=== PATIENT | female | born 1935 | race Caucasian/White ===

== ENCOUNTER 2017-05-07 12:47 | Inpatient (IN) | payer MEDICARE, MEDICAID ==
[2017-05-07] MEDS ORDERED: Sodium Chloride 0.9% 1,000 ML IV STA (13:37)
[2017-05-07 14:06] LABS: BASO % 0.2 % (0.0-2.0); EOS % 0.2 % (0.0-4.0); HEMATOCRIT 39.6 % (34.0-47.0); LYMPH # 1.4 K/uL (1.0-4.3); LYMPH % 17.9 % (20.0-40.0); MEAN CELL VOLUME 90.1 fL (81.0-99.0); MEAN CORPUSCULAR HEMOGLOBIN 30.5 pg (27.0-31.0); MEAN CORPUSCULAR HGB CONC 33.8 g/dL (33.0-37.0); MEAN PLATELET VOLUME 7.7 fL (7.2-11.7); MONO # 0.6 K/uL (0.0-0.8); MONO % 7.2 % (0.0-10.0); RED CELL DISTRIBUTION WIDTH 13.7 % (11.5-14.5); WHITE BLOOD COUNT 7.9 K/uL (4.8-10.8)
[2017-05-07] MEDS ORDERED: Sodium Chloride 0.9% 1,000 ML ONE (14:07)
--- NOTE | 2017-05-07 14:16 | C.PDOC ---
History Of Present Illness 82-year-old female, PMHx includes Hypertension, Hypertension, Hypercholesterolemia, colon perforation seven years ago, s/p resection w/ colostomy, s/p colostomy reversal, presents to the emergency department with complaints of diarrhea x9 days. Patient was seen by PMD, who prescribed Lomotil , and she has had intermittent non-bloody diarrhea since. States she is taking Pepto-Bismol, and reports decreased PO intake. Diarrhea became more significant last night; This morning, patient called PMD, who referred her to the ED for evaluation. Patient denies fevers, abdominal pain, nausea/vomiting, recent travel, ABX use. PMD Maribell Johnson MD. Time Seen by Provider: 05/07/17 13:08 Chief Complaint (Nursing): GI Problem History Per: Patient History/Exam Limitations: no limitations Onset/Duration Of Symptoms: Days Current Symptoms Are (Timing): Still Present Severity: Moderate Past Medical History Reviewed: Historical Data, Nursing Documentation, Vital Signs Vital Signs: Last Vital Signs Temp 99.0 F 05/07/17 13:07 Pulse 76 05/07/17 13:07 Resp 20 05/07/17 13:07 BP 149/72 05/07/17 13:07 Pulse Ox 95 05/07/17 14:39 - Medical History PMH: Depression, HTN, Hypercholesterolemia Family History: States: No Known Family Hx - Social History Hx Alcohol Use: No Hx Substance Use: No - Immunization History Hx Tetanus Toxoid Vaccination: No Hx Influenza Vaccination: No Hx Pneumococcal Vaccination: No Review Of Systems Except As Marked, All Systems Reviewed And Found Negative. Constitutional: Negative for: Fever Cardiovascular: Negative for: Chest Pain Respiratory: Negative for: Shortness of Breath Gastrointestinal: Positive for: Diarrhea. Negative for: Nausea, Vomiting Skin: Negative for: Rash Physical Exam - Physical Exam Additional Physical Exam Comments: Constitutional: Appears weak. Head: Normocephalic. Atraumatic. Eyes: PERRL. ENT: Dry mucous membranes. Neck: Supple. Cardiovascular: Regular rate. Radial pulses 2+ bilaterally. Chest: No tenderness. Respiratory: Clear to auscultation bilaterally. GI: Soft. Nontender. Nondistended. Hyperactive bowel sounds. No R/G. Old well- healed surgical scars Back: No CVA tenderness. Musculoskeletal: No tenderness or swelling of extremities. Skin: No rashes. Neurologic: Alert, no focal deficit. ED Course And Treatment - Laboratory Results Result Diagrams: 05/07/17 13:59 05/07/17 13:59 O2 Sat by Pulse Oximetry: 95 Medical Decision Making Medical Decision Making: Patient with significant diarrhea, not responsive to outpatient therapy with clinically appearing dehydration and worsening GFR. UTI. Dr. Johnson recommends admission, r/o C diff, abdominal CT. Started on antibiotics. Disposition - Disposition Disposition: HOSPITALIZED Disposition Time: 15:02 Condition: GUARDED - Clinical Impression Clinical Impression: Diarrhea, UTI (urinary tract infection), Dehydration - Scribe Statement The provider has reviewed the documentation as recorded by the Scribe Maged Pereira All medical record entries made by the Scribe were at my direction and personally dictated by me. I have reviewed the chart and agree that the record accurately reflects my personal performance of the history, physical exam, medical decision making, and the department course for this patient. I have also personally directed, reviewed, and agree with the discharge instructions and disposition. All medical record entries made by the Scribe were at my direction and personally dictated by me. I have reviewed the chart and agree that the record accurately reflects my personal performance of the history, physical exam, medical decision making, and the department course for this patient. I have also personally directed, reviewed, and agree with the discharge instructions and disposition.
[2017-05-07 14:22] LABS: RBC URINE 2 /hpf (0-3); URINE BACTERIA OCC (<OCC); URINE BILIRUBIN NEGATIVE (NEGATIVE); URINE BLOOD NEGATIVE (NEGATIVE); URINE COLOR Yellow (YELLOW); URINE GLUCOSE (UA) NORMAL (Normal); URINE KETONE NEGATIVE (NEGATIVE); URINE LEUKOCYTE ESTERASE 3+ Leu/uL (Negative); URINE PROTEIN NEGATIVE (NEGATIVE); URINE UROBILINOGEN NORMAL mg/dL (0.2-1.0); WBC URINE 35 /hpf (0-5)
[2017-05-07 14:27] LABS: POTASSIUM 3.7 mmol/L (3.6-5.2)
[2017-05-07 14:29] LABS: ALB/GLOB RATIO 1.3 (1.0-2.1); BILIRUBIN,TOTAL 0.6 mg/dL (0.2-1.3); TOTAL PROTEIN 6.3 g/dL (6.3-8.3)
[2017-05-07 14:30] LABS: CALCIUM 9.5 mg/dl (8.6-10.4)
[2017-05-07] MEDS ORDERED: Ciprofloxacin 400mg/200ml D5W 400 MG/200 ML BAG IVPB STA (14:59)
[2017-05-07] MEDS ORDERED: Ciprofloxacin 400mg/200ml D5W 400 MG/200 ML BAG IVPB ONE (15:07)
--- NOTE | 2017-05-07 16:09 | CT ---
PROCEDURE: CT Abdomen and Pelvis without Oral or IV contrast. HISTORY: diarrhea COMPARISON: None available. TECHNIQUE: Contiguous axial images of the abdomen and pelvis. No oral or IV contrast administered. Coronal and Sagittal reformats generated and reviewed. Radiation dose: Total exam DLP = 314.36 mGy-cm. This CT exam was performed using one or more of the following dose reduction techniques: Automated exposure control, adjustment of the mA and/or kV according to patient size, and/or use of iterative reconstruction technique. FINDINGS: There is limited evaluation of the solid organs without the administration of IV contrast. LOWER THORAX: Bibasilar atelectasis. No visible pleural effusion or pneumothorax. Irregular nodular density at the right lung base measuring approximately 1.1 x 1.5 cm (series 5, image 9). 5 mm left lower lobe pulmonary nodule (series 3, image 1). Dense coronary artery calcifications. Small hiatal hernia/distal esophageal wall thickening. LIVER: Unremarkable unenhanced appearance. GALLBLADDER AND BILE DUCTS: Unremarkable unenhanced appearance. PANCREAS: 13 mm probable splenule noted near the pancreatic tail. Pancreatic lesion is not excluded. The pancreas and spleen appear otherwise grossly unremarkable. SPLEEN: See above. ADRENALS: Unremarkable unenhanced appearance. KIDNEYS AND URETERS: Probable right extrarenal pelvis and parapelvic cysts. Mild right-sided hydronephrosis is not excluded. No left-sided hydronephrosis. No obstructing calculi evident bilaterally. The right kidney is malrotated. 16 mm low-density left renal lesion measures approximately 15 HU, possibly cyst. BLADDER: The urinary bladder appears unremarkable. REPRODUCTIVE: Unremarkable. APPENDIX: The appendix appears within normal limits of caliber. No secondary signs of acute appendicitis. BOWEL: The stomach is nondistended. Lack of oral contrast limits evaluation for bowel pathology. The bowel loops appear within normal limits of caliber without evidence of intestinal obstruction. Marked wall thickening of the duodenum at the level of large proximal air-filled duodenal diverticulum of unclear significance ; correlate clinically for infectious or inflammatory etiologies. Diverticulosis without CT evidence of acute diverticulitis. Anastomotic bowel suture material at the rectosigmoid colon. PERITONEUM: No significant free fluid. No definite free air. LYMPH NODES: No bulky lymphadenopathy identified. VASCULATURE: Dense atherosclerotic calcifications of the aorta and branches. No aortic aneurysm. BONES: Osseous demineralization. Degenerative changes. Vacuum disc phenomenon L5-S1. OTHER FINDINGS: None. IMPRESSION: Irregular nodular density at the right lung base measuring approximately 1.1 x 1.5 cm. 5 mm left lower lobe pulmonary nodule. CT of the chest is recommended for further evaluation. Malignant neoplasm cannot be excluded. Marked wall thickening of the duodenum at the level of large proximal air-filled duodenal diverticulum of unclear significance ; correlate clinically for infectious or inflammatory etiologies. Evaluation is limited due to lack of oral and IV contrast. Diverticulosis without CT evidence of acute diverticulitis. Probable right extrarenal pelvis and parapelvic cysts. Mild right-sided hydronephrosis is not excluded. No left-sided hydronephrosis. No obstructing calculi evident bilaterally. The right kidney is malrotated. 16 mm low-density left renal lesion measures approximately 15 HU, possibly cyst. Renal ultrasound may be considered if indicated. Additional incidental findings as above.
[2017-05-08] MEDS ORDERED: Home Med 1 UNIT (Ibandronate Sodium [Boniva] 150 MG) PO SCH (10:00)
[2017-05-08] MEDS ORDERED: Home Med 1 UNIT (Esomeprazole Magnesium [Nexium] 40 MG) PO SCH (10:00)
[2017-05-08] MEDS ORDERED: TIZANIDINE HCL 4 MG PO SCH (10:00)
[2017-05-08] MEDS ORDERED: Omega-3-Acid Ethyl Esters 1 GM Cap PO SCH (10:00)
[2017-05-08] MEDS ORDERED: Calcium-Vit D 500 mg-200 Units Tab UD PO SCH (10:00)
[2017-05-08] MEDS ORDERED: Dextrose 5%/0.45% NS 1,000 ML IV SCH (10:45)
[2017-05-08] MEDS: Multivitamin With Minerals Tab PO SCH (10:59)
[2017-05-08] MEDS: Pantoprazole 40 mg EC Tab PO SCH (10:59)
[2017-05-08] MEDS: Omega-3-Acid Ethyl Esters 1 GM Cap PO SCH (10:59)
[2017-05-08] MEDS: Enoxaparin 40 mg Syringe SC SCH (10:59)
[2017-05-08] MEDS: Calcium-Vit D 500 mg-200 Units Tab UD PO SCH (11:37)
--- NOTE | 2017-05-08 12:03 | CP.PCM.HP ---
History of Present Illness - History of Present Illness History of Present Illness: pt has watery diarhea not responding to treatment for last 10 days loss of apetitie loss of wt unable to eate Present on Admission - Present on Admission Any Indicators Present on Admission: No Review of Systems - Review of Systems Systems not reviewed;Unavailable: Acuity of Condition - Constitutional Constitutional: Anorexia, Weight Loss, Weakness - EENT Eyes: As Per HPI Ears: As Per HPI Nose/Mouth/Throat: Dry Mouth - Breasts Breasts: As Per HPI - Cardiovascular Cardiovascular: Dyspnea on Exertion - Respiratory Respiratory: Dyspnea on Exertion - Gastrointestinal Gastrointestinal: Bloating, Change in Bowel Habits, Diarrhea, Dyspepsia - Genitourinary Genitourinary: Dysuria - Reproductive: Female Reproductive:Female: Post Menopausal - Menstruation Menstruation: Post Menopausal - Musculoskeletal Musculoskeletal: Back Pain, Loss of Height, Stiffness - Integumentary Integumentary: Dry Skin - Neurological Neurological: Dizziness, Memory Loss, Weakness - Psychiatric Psychiatric: Change in Appetite - Endocrine Endocrine: As Per HPI - Hematologic/Lymphatic Hematologic: As Per HPI Past Patient History - Infectious Disease Hx of Infectious Diseases: None - Past Medical History & Family History Past Medical History?: Yes - Past Social History Smoking Status: Never Smoked Home Situation {Lives}: With Family - CARDIAC Hx Hypercholesterolemia: Yes Hx Hypertension: Yes - MUSCULOSKELETAL/RHEUMATOLOGICAL Hx Falls: No Other/Comment: muscle spasm in legs - GASTROINTESTINAL Hx Gastroesophageal Reflux: Yes - PSYCHIATRIC Hx Depression: Yes Hx Substance Use: No - SURGICAL HISTORY Other/Comment: colon surgery - ANESTHESIA Hx Anesthesia: Yes Hx Anesthesia Reactions: No Hx Malignant Hyperthermia: No Meds Allergies/Adverse Reactions: Allergies Allergy/AdvReac Type Severity Reaction Status Date / Time No Known Allergies Allergy Verified 05/07/17 13:09 Physical Exam - Constitutional Appears: In Acute Distress - Head Exam Head Exam: ATRAUMATIC - Eye Exam Eye Exam: Normal appearance - ENT Exam ENT Exam: Normal Exam - Neck Exam Neck exam: Positive for: Full Rom - Respiratory Exam Respiratory Exam: Clear to Auscultation Bilateral - Cardiovascular Exam Cardiovascular Exam: REGULAR RHYTHM - GI/Abdominal Exam GI & Abdominal Exam: Guarding, Normal Bowel Sounds, Tenderness - Rectal Exam Rectal Exam: NORMAL INSPECTION - Extremities Exam Extremities exam: Positive for: normal inspection, tenderness - Back Exam Back exam: CVA tenderness (L) - Neurological Exam Neurological exam: Oriented x3 - Psychiatric Exam Psychiatric exam: Normal Mood - Skin Skin Exam: Dry Results - Vital Signs Recent Vital Signs: Last Vital Signs Temp 97.3 F L 05/07/17 23:35 Pulse 60 05/07/17 23:35 Resp 20 05/07/17 23:35 BP 159/78 H 05/07/17 23:35 Pulse Ox 95 05/07/17 23:35 - Labs Result Diagrams: 05/07/17 13:59 05/07/17 13:59 Assessment & Plan - Assessment and Plan (Free Text) Assessment: persistant diarhea wt loss loss of apetite uti diverticulosis Plan: hydration gi consult fullliqid diet medication - Date & Time Date: 05/08/17 Time: 12:13
[2017-05-08] MEDS: Vancomycin 125 MG/5 ML SOLN (ORAL/RECTAL) PO SCH ×3 (14:07→21:45)
[2017-05-08] MEDS: Ciprofloxacin 400mg/200ml D5W 400 MG/200 ML BAG IVPB SCH (14:07)
--- NOTE | 2017-05-08 14:19 | US ---
HISTORY: partial thyroid resection TECHNIQUE: Grayscale imaging was performed. COMPARISON: None FINDINGS: RIGHT LOBE: Measures 3.2 x 1.2 x 1.2 cm. Small in size with normal echotexture and flow. Patient reports history of partial right thyroidectomy. Nodules: None LEFT LOBE: Measures 5.2 x 2.1 x 1.8 cm. Normal echotexture and increased flow. Nodules: There is a 17 x 5 x 5 mm nodule in the upper pole, 11 x 9 x 10 mm nodule in the lower pole and two discrete 20 mm and 11 mm nodules in the left interpolar region. ISTHMUS: Measures 0.14 cm. Normal echotexture and flow. Nodules: None OTHER FINDINGS: None . IMPRESSION: 1. Small right thyroid lobe without discrete nodule. Patient reports history of partial right thyroidectomy. 2. Multinodular hypervascular left thyroid lobe with a dominant 20 mm nodule in the left interpolar region.
[2017-05-08 14:46] LABS: T4 10.6 ug/dL (5.5-11.0)
[2017-05-08 15:00] LABS: THYROID STIMULATING HORMONE 1.67 mIU/L (0.46-4.68)
[2017-05-08 15:16] LABS: CARCINOEMBRYONIC ANTIGEN 1.1 ng/mL (0-3.0)
[2017-05-08 15:19] LABS: CA 19-9 28.6 U/mL (0-37)
[2017-05-08] MEDS ORDERED: Atropine-Diphenoxylate 0.025-2.5 mg Tab PO STA (17:23)
[2017-05-09 00:34] VITALS: TEMP 97.3
[2017-05-09] MEDS: Ciprofloxacin 400mg/200ml D5W 400 MG/200 ML BAG IVPB SCH (01:38)
[2017-05-09 08:31] VITALS: BP 108/67; PULSE 53; RESP 18; O2SAT 94
[2017-05-09] MEDS: Multivitamin With Minerals Tab PO SCH (09:17)
[2017-05-09] MEDS: Pantoprazole 40 mg EC Tab PO SCH (09:17)
[2017-05-09] MEDS: Enoxaparin 40 mg Syringe SC SCH (09:17)
[2017-05-09] MEDS: Calcium-Vit D 500 mg-200 Units Tab UD PO SCH (09:17)
[2017-05-09] MEDS: Omega-3-Acid Ethyl Esters 1 GM Cap PO SCH (09:17)
[2017-05-09] MEDS ORDERED: LIPASE/PROTEASE/AMYLASE 4,200 U ECC PO SCH ×2 (10:00→12:00)
[2017-05-09] MEDS ORDERED: Gentamicin 250 MG in Sodium Chloride 0.9% 250 ML IVPB STA ×2 (11:17→11:18)
--- NOTE | 2017-05-09 11:29 | PN ---
DATE: 05/09/2017 LOCATION: 552, bed B. This is an 82-year-old female seen and examined on GI consultation with admitting Dr. Johnson at beds ez on 05/08/2017, reexamined again today with the main complaint of diarrhea and crampy abdominal pa in with subsequent frequency of the bowel movement. The entire chart is reviewed, including but not limited to the most recent lab and radiology study results, current and previous medication list , current and the previous medical events. Case discussed with the staff at length, and yesterday sh owed normal cancer markers as well as normal thyroid function tests, but low total T3 of 1.24. Ultrasound of the thyroid report is seen. The patient may need endocrinology consultation. CAT scan of the abdomen and the pelvis also was seen. PHYSICAL EXAMINATION: GENERAL: An 82-year-old female seen in rounds, appears to be awake, alert, oriented. VITAL SIGNS: Afebrile with pulse of 56, respiratory rate 20-22 with blood pressure of 118/64. HEENT: Showed pale, dry oral mucoid membrane. Nonicteric sclerae. LUNGS: Few scattered crepitation, decreased air entry at bases. HEART: Positive S1 and S2. ABDOMEN: Soft. Bowel sounds are present with mild generalized tenderness, mild distention. EXTREMITIES: Without significant edema, clubbing or cyanosis. NEUROLOGIC: No reported new neurologic deficits, sensory or motor. Peripheral pulses are present. IMPRESSION: 1. Diarrhea of unclear etiology. The possibility of an early stage of diverticulitis was raised vers us malabsorption with mild thyroid disorder. 2. Loss of appetite and poor oral intake with body weight loss of unclear etiology so far. 3. Abnormal CAT scan of the abdomen and the pelvis. 4. Past medical history including, but not limited to hypertension, hyperlipidemia, depression as wel l as status post partial thyroidectomy with recent abnormal ultrasound of the thyroid. SUGGESTION: 1. Continue current management. 2. . 3. The patient may need colonoscopy when she is more stable clinically, awaiting stool result workup as initial report for C. diff antigen and toxin was reported to be negative. Thank you for letting me participate in your patient's case management. Ai Ferrell MD cc: 14 TT: 05/09/2017 11:27:48 Confirmation # [id number] Dictation # [id number]
[2017-05-09] MEDS: Vancomycin 125 MG/5 ML SOLN (ORAL/RECTAL) PO SCH ×2 (12:02→13:37)
--- NOTE | 2017-05-09 12:09 | CP.PCM.PN ---
Subjective - Date & Time of Evaluation Date of Evaluation: 05/10/17 Time of Evaluation: 12:06 - Subjective Subjective: diarhea beter today uriary tract infection weeke Objective - Vital Signs/Intake and Output Vital Signs (last 24 hours): Temp Pulse Resp BP Pulse Ox 97.3 F L 53 L 18 108/67 94 L 05/09/17 07:10 05/09/17 07:10 05/09/17 07:10 05/09/17 07:10 05/09/17 07:10 Intake and Output: 05/09/17 05/09/17 06:59 18:59 Intake Total 530 Balance 530 - Medications Medications: Current Medications Acetaminophen (Tylenol 325mg Tab) 650 mg PO Q6 PRN PRN Reason: Pain, moderate (4-7) Amlodipine Besylate (Norvasc) 5 mg PO DAILY [facility] Last Admin: 05/09/17 09:17 Dose: 5 mg Calcium/Vitamin D (Oyster Shell Calcium/Vitamin D 500 Mg-200 Iu) 1 tab PO DAILY [facility] Last Admin: 05/09/17 09:17 Dose: 1 tab Celecoxib (Celebrex) 200 mg PO DAILY [facility] Last Admin: 05/09/17 09:17 Dose: 200 mg Clonazepam (Klonopin) 0.5 mg PO DAILY [facility] Last Admin: 05/09/17 09:16 Dose: 0.5 mg Donepezil HCl (Aricept) 10 mg PO DAILY [facility] Last Admin: 05/09/17 09:17 Dose: 10 mg Enoxaparin Sodium (Lovenox) 40 mg SC DAILY [facility] Last Admin: 05/09/17 09:17 Dose: Not Given Gabapentin (Neurontin) 300 mg PO DAILY [facility] Last Admin: 05/09/17 09:17 Dose: 300 mg Home Med (Ibandronate Sodium [Boniva]) 150 mg PO DAILY [facility] Home Med (Tizanidine Hcl [Zanaflex]) 4 mg PO DAILY [facility] Dextrose/Sodium Chloride (Dextrose 5%/0.45% Ns 1000 Ml) 1,000 mls @ 50 mls/hr IV .Q20H [facility] Last Admin: 05/08/17 10:58 Dose: 50 mls/hr Gentamicin Sulfate 250 mg/ (Sodium Chloride) 256.25 mls @ 256.25 mls/hr IVPB ONCE STA Stop: 05/09/17 12:17 Last Admin: 05/09/17 12:02 Dose: 256.25 mls/hr Memantine (Namenda) 10 mg PO DAILY [facility] Last Admin: 05/09/17 09:16 Dose: 10 mg Mirtazapine (Remeron) 15 mg PO DAILY [facility] Last Admin: 05/09/17 09:16 Dose: 15 mg Multivitamins/Minerals (Therapeutic-M Tab) 1 tab PO DAILY [facility] Last Admin: 05/09/17 09:17 Dose: 1 tab Nitrofurantoin Macrocrystals (Macrobid) 100 mg PO Q12H [facility] [id number] Ethyl Esters (Lovaza) 1 gm PO DAILY [facility] Last Admin: 05/09/17 09:17 Dose: 1 gm Pantoprazole Sodium (Protonix Ec Tab) 40 mg PO DAILY [facility] Last Admin: 05/09/17 09:17 Dose: 40 mg Pneumococcal Polyvalent Vaccine (Pneumovax 23 Vaccine) 0.5 ml IM .ONCE ONE Stop: 05/10/17 10:01 Propranolol HCl (Inderal) 10 mg PO DAILY [facility] Last Admin: 05/09/17 09:17 Dose: 10 mg Rosuvastatin Calcium (Crestor) 5 mg PO HS [facility] Last Admin: 05/08/17 21:45 Dose: 5 mg Vancomycin HCl (Vancocin (Oral Or Rectal Use)) 125 mg PO QID [facility] Last Admin: 05/09/17 12:02 Dose: 125 mg - Constitutional Appears: Non-toxic - Head Exam Head Exam: NORMAL INSPECTION - Eye Exam Eye Exam: Normal appearance Pupil Exam: NORMAL ACCOMODATION - ENT Exam ENT Exam: Mucous Membranes Moist - Neck Exam Neck Exam: Full ROM - Respiratory Exam Respiratory Exam: Clear to Ausculation Bilateral - Cardiovascular Exam Cardiovascular Exam: REGULAR RHYTHM - GI/Abdominal Exam GI & Abdominal Exam: Normal Bowel Sounds - Rectal Exam Rectal Exam: NORMAL INSPECTION - Extremities Exam Extremities Exam: Normal Inspection - Back Exam Back Exam: NORMAL INSPECTION - Neurological Exam Neurological Exam: Normal Gait - Psychiatric Exam Psychiatric exam: Normal Mood - Skin Skin Exam: Normal Color Additional comments: poor turger Assessment and Plan - Assessment and Plan (Free Text) Assessment: urinary tract infection e coli s/p persistant diarhea diverticulosis Plan: gentamycin iv nitrfurantin oo d/d home with med f/u in my ofice one weeke
--- NOTE | 2017-05-09 22:28 | CON ---
DATE: 05/08/2017 Dr. Maribell Johnson. I was called for a GI consultation by the admitting MD. The patient is seen and fully examined in th e presence of Dr. Maribell Johnson on 05/08/2017. The entire chart is reviewed, including but not limite d to the most recent lab and radiology study results, current and previous medication lists, current and the previous medical events as well as allergies and medications list. Case discussed at length with the staff. HISTORY OF PRESENT ILLNESS: This is an 82-year-old female who was admitted to the hospital with the main complaint of severe crampy abdominal pain, but has felt that way for the last several days, post prandial abdominal distention with very poor oral intake and excessive body weight loss recently with out respond to any outpatient treatment including antibiotics orally. The patient subsequently became somewhat depressed with periods of insomnia. PAST MEDICAL HISTORY: Including but not limited to: 1. Hypertension. 2. Hyperlipidemia. 3. Perforated colon before believed to be secondary to perforated diverticulum with status post part ial colon resection and colostomy, which was repaired years ago. 4. History of thyroid disorder with partial thyroidectomy mainly in the right side about 40 years ag o with thyroid function test ordered. 5. Peptic ulcer disease. SOCIAL HISTORY: No known history of cigarette smoking or alcohol intake. CURRENT MEDICATIONS: Medication lists were reviewed. ALLERGY TO MEDICATION: . FAMILY HISTORY: Unknown. LABORATORY DATA: After being admitted to the hospital, the patient was found to have normal CBC and a normal SMA-18, basically. IMAGING: Results of the CAT scan of the abdomen done in the Emergency Room were seen. PHYSICAL EXAMINATION: GENERAL: An 82-year-old female, awake, alert and oriented, appeared to be somewhat cachectic. VITAL SIGNS: Afebrile with pulse of 72, respiratory rate 20-22 with blood pressure of 144/70. HEENT: Showed pale, dry oral mucoid membrane. Nonicteric sclerae. LYMPH NODES: No lymphadenitis or lymphadenopathy. LUNGS: Few scattered crepitation, decreased air entry at bases. HEART: Positive S1 and S2. LYMPH NODES: No lymphadenitis or lymphadenopathy. ABDOMEN: Soft. Bowel sounds are present. No mass or organomegaly. No rebound tenderness or guardi ng. RECTAL: The patient refused. EXTREMITIES: Evidence of muscle wasting syndrome as well as mild edematous changes. No clubbing or cyanosis. NEUROLOGIC: No reported neurological deficits, sensory or motor. IMPRESSION: 1. Profuse diarrhea of unclear etiology. The possibility of diverticulosis with recurrent episodes of mild diverticulitis was raised. 2. Rule out pancreatic insufficiency. 3. Malabsorption syndrome. 4. The possibility of short bowel syndrome was raised. 5. Considering that the patient's thyroid disorder with partial thyroidectomy, the possibility of hy perthyroidism recurrent episodes of to be kept in mind. 6. Rule out Clostridium difficile infection. 7. Past medical history including, but not limited to, depression, hypertension, hyperlipidemia, par tial colon resection as well as partial thyroidectomy. SUGGESTION: 1. Continue current management. 2. Complete stool analysis. 3. Thyroid function tests. 4. Add vancomycin p.o. 5. Cholestyramine powder 1 bag twice a day. 6. Creon 2 at 24,000 units p.o. 1 twice a day. 7. The patient may need endoscopic evaluation of the lower GI tract with an upper GI tract to small bowel biopsy if her symptoms persist. Thank you for letting me participate in your patient's case management. Further recommendations and evaluation to follow. Ai Ferrell MD cc: 14 TT: 05/09/2017 22:27:05 Confirmation # [id number] Dictation # [id number] [email or web address]
[2017-05-10] MEDS ORDERED: Pneumococcal 23-Valent Vaccine IM ONE (10:00)
== END 2017-05-09 14:35 | disposition home or self-care (01) | DRG 690 ==
LOC: C.ER 12:47 → C.9E 14:59 → C.5T 17:39
PROVIDERS: ADMIT Internal Medicine; ATTEND Internal Medicine
DX: N39.0 Urinary tract infection, site not specified (principal); R63.0 Anorexia; K25.9 Gastric ulcer, unspecified as acute or chronic, without hemorrhage or perforation; E86.0 Dehydration; K90.9 Intestinal malabsorption, unspecified; K57.90 Diverticulosis of intestine, part unspecified, without perforation or abscess without bleeding; F32.9 Major depressive disorder, single episode, unspecified; K21.9 Gastro-esophageal reflux disease without esophagitis; I10 Essential (primary) hypertension; E78.00 Pure hypercholesterolemia, unspecified; R63.4 Abnormal weight loss; G47.00 Insomnia, unspecified; E05.90 Thyrotoxicosis, unspecified without thyrotoxic crisis or storm; Z98.0 Intestinal bypass and anastomosis status; B96.20 Unspecified Escherichia coli [E. coli] as the cause of diseases classified elsewhere; R19.7 Diarrhea, unspecified; M62.831 Muscle spasm of calf